=== PATIENT | female | born 1970 | race Two or more races ===

== ENCOUNTER 2022-03-17 20:16 | Emergency (ER) | payer MEDICAID, OTHER ==
[~2022-03-17] VITALS: Ht 154.9 cm; Wt 64.2 kg
[2022-03-17 20:25] VITALS: BP 135/66
== END 2022-03-18 00:12 | disposition left against medical advice (07) ==
LOC: ER 20:28
DX: Z53.21 Procedure and treatment not carried out due to patient leaving prior to being seen by health care provider (principal)